=== PATIENT | female | born 1950 | race Caucasian/White ===

== ENCOUNTER → 2017-10-17 08:32 | Outpatient (CLI) | payer OTHER, MEDICARE, SELFPAY ==
[2017-10-17 09:21] LABS: AST(SGOT) 18 U/L (15-37); Alanine Aminotransfer ALT/SGPT 34 U/L (13-56); Albumin, Serum 3.6 g/dL (3.2-5.0); Alkaline Phosphatase 64 U/L (45-117); Bilirubin, Direct 0.12 mg/dL (0.00-0.30); Cholesterol 161 mg/dL (200); Globulin 4.2 g/dL (2.2-4.2); High Density Lipoprotein 49 mg/dL; Protein, Total 7.8 g/dL (6.4-8.2); Triglycerides 187 mg/dL; Very Low Density Lipoprotein 37 mg/dL (5-40)
== END ==
PROVIDERS: Family Provider Family Medicine; PCP Family Medicine; Visit Provider Internal Medicine Cardiovascular Disease
DX: E78.5 Hyperlipidemia, unspecified (principal); Z79.899 Other long term (current) drug therapy
CPT/HCPCS: 36415; 80061; 80076

== ENCOUNTER 2017-11-03 09:23 | Inpatient (IN) | payer OTHER, MEDICARE, SELFPAY ==
[2017-11-03] VITALS (17 sets, daily range): BP systolic 122–168; BP diastolic 61–89; PULSE 66–89; RESP 14–20; TEMP 36.4–36.6; O2SAT 93–100; BMI 30.7; BMI 33.3
--- NOTE | 2017-11-03 09:44 | EKG12_ITS ---
Test Reason : CP Blood Pressure : / mmHG Vent. Rate : 100 BPM Atrial Rate : 100 BPM P-R Int : 112 ms QRS Dur : 090 ms QT Int : 386 ms P-R-T Axes : 035 030 124 degrees QTc Int : 497 ms Normal sinus rhythm ST & T wave abnormality, consider lateral ischemia Abnormal ECG Confirmed by LIBBY NORRIS, REGINO ([id number]), fan mail editor HOLLY KINNEY ([id number]) on 11/06/2017 3:52:29 PM Referred By: OMER Confirmed By:REGINO SOUZA MD
--- NOTE | 2017-11-03 09:58 | ED.RN ---
DENIES CP 5MIN AFTER NITRO
--- NOTE | 2017-11-03 10:05 | EKG12_ITS ---
Test Reason : REPEAT Blood Pressure : / mmHG Vent. Rate : 073 BPM Atrial Rate : 073 BPM P-R Int : 132 ms QRS Dur : 096 ms QT Int : 412 ms P-R-T Axes : 042 016 098 degrees QTc Int : 453 ms Normal sinus rhythm Nonspecific ST and T wave abnormality Abnormal ECG Confirmed by LIBBY NORRIS, REGINO ([id number]), senior editor HOLLY KINNEY ([id number]) on 11/06/2017 3:52:41 PM Referred By: OMER Confirmed By:REGINO SOUZA MD
--- NOTE | 2017-11-03 10:05 | RAD_ITS ---
STUDY: X-RAY CHEST REASON FOR EXAM: Female, 67 years old. Sudden onset of chest pain this morning TECHNIQUE: Single view of the chest was obtained COMPARISON: None. FINDINGS: No lung consolidation, pleural effusion or pneumothorax. Midline sternotomy wires are seen. Cardiac size within normal limits. Osseous structures demonstrate no acute abnormalities. RAD/Chest 1 View (Portable) IMPRESSION: No evidence of focal airspace disease. Electronically Signed: Elgin Quinones, at 10:25 EST Tel , Service support ,
[2017-11-03] MEDS: Nitroglycerin Oint 1 INCH PACKET TRANSDERM. (10:13)
[2017-11-03] MEDS: Aspirin 81 MG TAB.CHEW 324 MG PO (10:13)
[2017-11-03 10:18] LABS: Absolute Lymphocyte Count 2.34 X10^3/ul (0.83-4.51); Absolute Neutrophil Count 4.2 X10^3/uL (2.0-7.7); Basophil# 0.03 X10^3/uL; Basophil% 0.4 % (0-1); Eosinophil# 0.33 X10^3/uL; Eosinophils% 4.5 % (0-5); Hemoglobin 13.3 g/dl (12.0-15.0); Lymphocyte # 2.34 X10^3/ul (4.0); Lymphocyte % 31.8 % (19-41); Mean Corp Hgb Conc 32.4 g/gl (32-36); Mean Corpuscular Volume 83.2 fL (81-99); Mean Platelet Vol. 12.6 fl (6.2-12.0); Monocyte# 0.47 X10^3/uL; Monocyte% 6.4 % (0-10); Neutrophil # 4.18 X10^3/uL (2.7-7.7); Neutrophil % 56.6 % (47-70); POSITIVE COUNT NO; POSITIVE DIFFERENTIAL NO; POSITIVE MORPHOLOGY NO; Platelet Count 258 K/mm3 (150-450); RBC Distribution Width CV 13.9 % (11.6-14.6); RBC Distribution Width SD 41.9 fl (35.1-43.9); Red Blood Count 4.93 M/mm3 (4.2-5.4); White Blood Count 7.4 K/mm3 (4.4-11.0)
[2017-11-03 10:39] LABS: Anion Gap 14 (5-15); BUN 17 mg/dL (7-18); BUN/Creat Ratio 14.2 RATIO (10-20); Calcium,Total 9.3 mg/dL (8.5-10.1); Chloride 103 mmol/L (98-107); EST Glomerular Filtration Rate 48 mL/min (>60); Est Glom Filt Rate - Afr Amer 58 mL/min (>60); Estimated Creatinine Clearance 39.82 ml/min; Glucose 177 mg/dL (74-106); Potassium 3.7 mmol/L (3.5-5.1); Sodium Level 140 mmol/L (136-145)
--- NOTE | 2017-11-03 10:55 | ED.VISSUMM ---
- ER Visit Summary Date of Service: 11/03/17 Chief Complaint: [Chest pain] History of Present Illness: The patient is a 67 F [presents to the emergency department with chest pain that started about 15 minutes ago. Patient was in the shower when she developed discomfort in her left chest that she described as pressure. Patient also describes some discomfort into her left arm and some mild shortness of breath. Patient's had some heartburn symptoms this morning as well. Patient on arrival states her chest pain is a 0 out of 10. Patient tells me she had a three-vessel CABG in 2007. Patient states that she thinks her last process was about a year ago and was unremarkable. Her senior design engineer is Dr. Tino Batista. Patient denies any recent travel or surgery.] Physical Examination: [HEENT-PERRLA, EOMI. Cranial nerves II through XII grossly intact. TMs clear. Mucous membranes moist. No adenopathy. Cardiovascular-regular rate and rhythm without murmur or ectopy Lungs-clear to auscultation, chest wall stable without crepitus or subcu emphysema Abdomen-normoactive bowel sounds, soft, nontender, no rebound or rigidity, no peritoneal signs. Extremities-intact ?4, normal range of motion, normal pulses, atraumatic] Test Results: [EKG obtained on arrival showed a sinus rhythm with a ventricular rate of [address] changes noted when compared with prior EKG from 2015 no significant changes noted. CBC with differential obtained was normal. Chemistries were normal. BUN was 17 and creatinine 1.2. Troponin was less than 0.02. Chest x-ray showed nothing acute.] Emergency Department Course and Treatment: [Patient initially received aspirin in the emergency department and during her stay she developed some discomfort in her left arm for which she received 1 sublingual nitro which resolved her pain once again. Repeat EKG does not show any significant changes compared to her first EKG here she does have chronically flipped T waves in leads I and aVL. Patient remained pain-free after she had an inch of Nitropaste placed to the anterior chest wall.] Treatment Plan: [Patient's case was discussed with hospitalist who will evaluate patient for admission] Disposition: [Admit] Impression: [Chest pain-rule out acute coronary syndrome] This note was generated with [employer] software. It may contain incorrect words, spelling, and punctuation that were not noted in review of the chart prior to signing ED Disposition - Plan for ED Patient: Chief Complaint: Chest Pain Referrals: Maikel Bay DO [Primary Care Provider] -
--- NOTE | 2017-11-03 10:59 | ED.DCSUM_ITS ---
- ER Visit Summary Date of Service: 11/03/17 Chief Complaint: [Chest pain] History of Present Illness: The patient is a 67 F [presents to the emergency department with chest pain that started about 15 minutes ago. Patient was in the shower when she developed discomfort in her left chest that she described as pressure. Patient also describes some discomfort into her left arm and some mild shortness of breath. Patient's had some heartburn symptoms this morning as well. Patient on arrival states her chest pain is a 0 out of 10. Patient tells me she had a three-vessel CABG in 2007. Patient states that she thinks her last process was about a year ago and was unremarkable. Her transmission rebuilder is Dr. Tino Batista. Patient denies any recent travel or surgery.] Physical Examination: [HEENT-PERRLA, EOMI. Cranial nerves II through XII grossly intact. TMs clear. Mucous membranes moist. No adenopathy. Cardiovascular-regular rate and rhythm without murmur or ectopy Lungs-clear to auscultation, chest wall stable without crepitus or subcu emphysema Abdomen-normoactive bowel sounds, soft, nontender, no rebound or rigidity, no peritoneal signs. Extremities-intact ?4, normal range of motion, normal pulses, atraumatic] Test Results: [EKG obtained on arrival showed a sinus rhythm with a ventricular rate of [address] changes noted when compared with prior EKG from 2015 no significant changes noted. CBC with differential obtained was normal. Chemistries were normal. BUN was 17 and creatinine 1.2. Troponin was less than 0.02. Chest x-ray showed nothing acute.] Emergency Department Course and Treatment: [Patient initially received aspirin in the emergency department and during her stay she developed some discomfort in her left arm for which she received 1 sublingual nitro which resolved her pain once again. Repeat EKG does not show any significant changes compared to her first EKG here she does have chronically flipped T waves in leads I and aVL. Patient remained pain-free after she had an inch of Nitropaste placed to the anterior chest wall.] Treatment Plan: [Patient's case was discussed with hospitalist who will evaluate patient for admission] Disposition: [Admit] Impression: [Chest pain-rule out acute coronary syndrome] This note was generated with [facility] software. It may contain incorrect words, spelling, and punctuation that were not noted in review of the chart prior to signing ED Disposition - Plan for ED Patient: Chief Complaint: Chest Pain Referrals: Maikel Bay DO [Primary Care Provider] -
--- NOTE | 2017-11-03 11:03 | HP.PCM_ITS ---
Problem List (1) Obesity Status: Chronic (2) Atherosclerotic heart disease of [place] coronary artery without angina pectoris Status: Chronic (3) Diabetes mellitus type II, controlled, with no complications Status: Chronic (4) Hyperlipidemia Status: Chronic (5) Hypertension Status: Chronic (6) S/P coronary artery bypass graft x 2 Status: Chronic Comment: 03/25/08, CAB X 3 vessels, CARNEY to LAD, SVG to DX & SVG to RCA, @ [facility] in [place], [place] (7) Unstable angina Status: Acute History of Present Illness Date of Admission: 11/03/17 Chief Complaint: chest pain The patient is a 67 year old F with a PMH of CAD with CABG X3 in 2007, diabetes mellitus type 2, hyperlipidemia, hypertension and obesity who presented to the emergency room on 11/03/2017 complaining of pressure. She was in the shower when she had palpitations followed by chest pressure with radiation down the left arm and associated with nausea, shortness of breath and diaphoresis. She did not have nitroglycerin at home. Her drove her to the emergency room and this took approximately 45 minutes from the onset of the pain. She received 1 nitroglycerin in the emergency room and the chest pain resolved in 4- 5 minutes. E[address] shows nons[address] and T-wave changes. Vital signs at arrival to the emergency temperature 97.7, pulse rate 89, blood pressure 168/88 , respiratory rate 15 and she was 100% saturated on room air. CBC was unremarkable. Electrolytes were within normal limits and the BUN was 17 with a creatinine of 1.2. 1.2 is within her baseline. Troponin was less than 0.02 in the LFTs were within normal limits. Hemoglobin A1c is 7.0. Test x-ray showed no infiltrates, pleural effusions or pulmonary vascular congestion. She had a pharmacologic stress test 1 year ago and this was negative. She has never had a cath since her CABG. She is being admitted to a monitored bed on PCU with a diagnosis of unstable angina. Past Medical History Past Medical History (Chronic Problems): Chronic Problems (Last Reviewed 10/18/17 @ 15:26 by Tino Batista MD) Obesity (Chronic) Atherosclerotic heart disease of [place] coronary artery without angina pectoris (Chronic) S/P coronary artery bypass graft x 2 (Chronic) 03/25/08, CAB X 3 vessels, CARNEY to LAD, SVG to DX & SVG to RCA, @ [facility] in [place], [place] Diabetes mellitus type II, controlled, with no complications (Chronic) Hyperlipidemia (Chronic) Hypertension (Chronic) Allergies iodine Allergy (Verified 11/03/17 09:36) Unknown shellfish derived Allergy (Verified 11/03/17 09:36) Unknown IV Contrast Adverse Reaction (Severe, Uncoded 11/03/17 09:36) Hives Home Medications: Ambulatory Orders Medication Instructions Recorded Epinephrine [Epi Pen] 0.3 mg IM X1 PRN 10/25/14 Fluticasone 0.05% [Flonase Nasal 2 spray NASAL DAILY PRN PRN 10/25/14 [place]] Losartan Potassium [Cozaar] 25 mg PO DAILY 10/25/14 Metformin HCl [Glucophage] 1,000 mg PO BIDCM 10/25/14 Metoprolol Tartrate [Lopressor 50 mg PO BID 10/25/14 (Beta Dawn)] Triamterene 75MG/Hctz 50MG 1 tab PO DAILY 10/25/14 [Maxzide] Aspirin [Adult Low Dose Aspirin EC] 81 mg PO DAILY 01/13/16 Multivitamins,Therapeutic 1 tab PO DAILY 01/13/16 [Multivitamin] Loratadine [Claritin] 10 mg PO DAILY PRN 05/10/16 sitagliptin 100 mg tablet 100 mg PO DAILY tab 10/16/17 oxybutynin chloride ER 5 mg 5 mg PO DAILY 10/18/17 tablet,extended release 24 hr simvastatin 40 mg tablet 40 mg PO QHS 10/18/17 Citalopram [Celexa] 20 mg PO DAILY 11/03/17 Esomeprazole Mag Trihydrate 22.3 mg PO QHS 11/03/17 [Nexium] Surgical History: cholecystectomy, coronary bypass surgery - 2007 with 3 vessel bypass, hysterectomy - for DUB Psychiatric History: 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 Denies: Claudication, Edema, Light Headedness, Orthopnea, Paroxysmal Noc. Dyspnea, Syncope Respiratory: Reports: Shortness of Breath - only with chest pain. Denies: Cough , Pleuritic Pain Gastrointestinal: Reports: Nausea. Denies: Abdominal Pain, Vomiting - the nausea resolved with the resolution of the chest pressure Genitourinary: Denies: Dysuria Gynecological: Denies: Breast symptoms, Vaginal discharge Musculoskeletal: Reports: Arm Pain - left arm pain and some back pain were associated with the chest pressure Skin: Denies: Jaundice, Rash, Wounds Neurological: Denies: Numbness, Tingling, Focal weakness Psychiatric: Reports: Depression Endocrine: Denies: Change in Body Habitus Hematologic/ Lymphatic: Denies: Hx of blood clot VTE Information - Inpt Only VTE Present on Admission: No VTE Mechan Device Prophylaxis: Knee High ELLIOT Hose VTE Pharm Prophylaxis ordered?: Yes Patient Problems: Active and Suspected Problems (Last Reviewed 10/18/17 @ 15:26 by Tino Batista MD ) Unstable angina (Acute) - Physical Exam General: Alert, Oriented x3, Cooperative, No apparent distress, Well developed, Well nourished HEENT: Atraumatic, PERRLA, EOMI, Normocephalic Oral: Moist Mucosa, No Gingival or Mucosal Lesions/ Ulcerations Neck: Supple, No JVD, Negative Carotid Bruits, No Nodes Lungs: Clear to auscultation, Normal air movement, No rhonchi, No wheeze, No rales Cardiovascular: Regular rate, Regular Rhythm, Normal S1, Normal S2, No murmurs, No Ectopic Activity, No Gallop Abdomen: Bowel Sounds Present, Soft, Non Tender, Non-Distended, Obese, - - No guarding with palpation, no abdominal bruits Extremities: No clubbing, No cyanosis, No edema, No Calf Tenderness, Peripheral Pulses Normal Skin: No rashes, No breakdown Musculoskeletal: No Muscle Wasting Neurological: Cranial nerves II-XII grossly intact, Neuro grossly intact Psych/Mental Status: Normal Affect, Appropriate Vital Signs Temp Pulse Resp BP Pulse Ox 97.7 F L 73 15 138/73 H 98 11/03/17 09:24 11/03/17 10:47 11/03/17 10:47 11/03/17 10:47 11/03/17 10:47 Oxygen Flow Rate 2 Oxygen Delivery Method Nasal Cannula Weight: 179 lb 0.246 oz Body Mass Index (BMI) 30.7 Laboratory Tests Past 24 Hrs 11/03/17 11/03/17 09:32 09:32 WBC 7.4 RBC 4.93 Hgb 13.3 Hct 41.0 MCV 83.2 MCH 27.0 MCHC 32.4 RDW 13.9 RDW Differential 41.9 Plt Count 258 MPV 12.6 H Immature Gran % (Auto) 0.300 Neut % (Auto) 56.6 Lymph % (Auto) 31.8 Sampson % (Auto) 6.4 Eos % (Auto) 4.5 Baso % (Auto) 0.4 Absolute Neuts (auto) 4.2 Absolute Lymphs (auto) 2.34 Total Counted Not Reportable Sodium 140 Potassium 3.7 Chloride 103 Carbon Dioxide 23.0 Anion Gap 14 BUN 17 Creatinine 1.20 H Estim Creat Clear Calc 39.82 Est GFR (MDRD) Af Amer 58 L Est GFR (MDRD) Non-Af 48 L BUN/Creatinine Ratio 14.2 Glucose 177 H Calcium 9.3 Troponin I < 0.02 Assessment/Plan Active and Suspected Problems (Last Reviewed 10/18/17 @ 15:26 by Tino Batista MD ) Unstable angina (Acute) Impressions 1. unstable angina 2. hx of CAD with CABG X3 in 2007 3. HTN 4. HLD 5. Obesity 6. Diabetes mellitus type 2 Admitted to PCU and the chest pain protocol was initiated started Isordil 10 mg TID Serial CE's (negative X2) Will discuss with cardiology and see if they think cath? or stress? Sx are classic for angina and she had bypass surgery 11 years ago Lipid panel in the AM DVT prophylax is ordered. Instructed to call the nurse if any chest discomfort Code Visit Inpatient E&M: 83841 Subs Hosp L3
--- NOTE | 2017-11-03 11:54 | ECHOD_ITS ---
Reason For Study: CHEST PAIN Procedure This was a 2D Doppler, Color Flow transthoracic echocardiogram. Contrast injection was performed. The study was technically difficult. Exam performed in department. Left Ventricle Normal LV size. Left ventricular systolic function is normal. The estimated ejection fraction is 55 %. Post operative septal motion. No evidence for diastolic dysfunction. No regional wall motion abnormalities noted. Right Ventricle Normal RV size. Normal systolic function. Atria Normal left atrium. Normal right atrium. Mitral Valve Normal mitral valve. Tricuspid Valve Normal tricuspid valve. Mild tricuspid valve insufficiency. Normal pulmonary artery pressure. Aortic Valve Trisinus/trileaflet aortic valve. Pulmonic Valve Normal pulmonic valve. Great Vessels Normal aortic root. The pulmonary artery is normal size. Inferior vena cava collapse with respiration. Pericardium/Pleural No pericardial effusion. Medication Diluted definity 2ml given slow IV push to enhance endocardial definition. MMode/2D Measurements & Calculations LVIDd: 4.3 cm IVSd: 1.1 cm Ao root diam: 2.7 cm LVIDs: 3.3 cm LVPWd: 0.85 cm LA dimension: 2.6 cm RVDd: 2.6 cm FS: 24.3 % LAV(MOD-bp): 23.6 ml EDV(MOD-sp4): 68.2 ml EDV(MOD-sp2): 50.6 ml LAV(MOD-bp) Indexed: 13.2 ml/m2 ESV(MOD-sp4): 31.0 ml EF(MOD-sp2): 58.2 % LAV(MOD-sp2): 17.2 ml EF(MOD-sp4): 54.6 % LAV(MOD-sp4): 24.4 ml SV(MOD-sp4): 37.2 ml SV(MOD-sp2): 29.4 ml LA A4 area: 11.6 cm2 RA A4 area: 7.9 cm2 Doppler Measurements & Calculations MV E max roscoe: 48.8 cm/sec Ao V2 max: 93.0 cm/sec LV V1 max: 78.8 cm/sec MV A max roscoe: 99.3 cm/sec Ao max P.5 mmHg LV V1 max P.5 mmHg MV E/A: 0.49 TR max roscoe: 215.5 cm/sec TR max P.6 mmHg Interpretation Summary Normal LV size. Left ventricular systolic function is normal. The estimated ejection fraction is 55 %. No evidence for diastolic dysfunction. Contrast injection was performed. Compared to prior study, there is no significant change. Ordering Physician: Jessica Pierre Referring Physician: GERMANIA JACOBSON Performed By: Prudence Shannon, HERMILOCS, RVT
--- NOTE | 2017-11-03 12:35 | EKG12_ITS ---
Test Reason : REPEAT Blood Pressure : / mmHG Vent. Rate : 066 BPM Atrial Rate : 066 BPM P-R Int : 130 ms QRS Dur : 094 ms QT Int : 448 ms P-R-T Axes : 030 010 085 degrees QTc Int : 469 ms Normal sinus rhythm Nonspecific ST abnormality Abnormal ECG When compared with ECG of 25-OCT-2014 20:03, Vent. rate has decreased BY 39 BPM Nonspecific T wave abnormality no longer evident in Inferior leads T wave inversion no longer evident in Lateral leads Confirmed by REGINO SOUZA MD ([id number]), health editor HOLLY KINNEY ([id number]) on 11/07/2017 1:46:01 PM Referred By: SEBAS Confirmed By:REGINO SOUZA MD
[2017-11-03 12:36] LABS: Bedside Glucose 96 mg/dL (70-110)
[2017-11-03 12:37] LABS: AST(SGOT) 29 U/L (15-37); Alanine Aminotransfer ALT/SGPT 36 U/L (13-56); Albumin, Serum 3.6 g/dL (3.2-5.0); Alkaline Phosphatase 67 U/L (45-117); Globulin 4.3 g/dL (2.2-4.2); Magnesium 1.6 mg/dL (1.6-2.6); Protein, Total 7.9 g/dL (6.4-8.2)
[2017-11-03] MEDS: Isosorbide DN 10 MG Tablet PO ×2 (14:09→21:14)
[2017-11-03 17:26] LABS: Bedside Glucose 133 mg/dL (70-110)
[2017-11-03] MEDS: Metoprolol Tartrate 50 MG Tablet PO (21:14)
[2017-11-03] MEDS: Atorvastatin Calcium 20 MG Tablet PO (21:14)
[2017-11-03 21:31] LABS: Bedside Glucose 147 mg/dL (70-110)
[2017-11-04] VITALS (14 sets, daily range): BP systolic 123–140; BP diastolic 61–72; PULSE 66–83; RESP 16–20; TEMP 36.7–37; O2SAT 93–96
[2017-11-04] MEDS: Isosorbide DN 10 MG Tablet PO ×3 (05:36→21:09)
--- NOTE | 2017-11-04 05:55 | EKG12_ITS ---
Test Reason : AM EKG Blood Pressure : / mmHG Vent. Rate : 071 BPM Atrial Rate : 071 BPM P-R Int : 132 ms QRS Dur : 094 ms QT Int : 432 ms P-R-T Axes : 035 012 095 degrees QTc Int : 469 ms Sinus rhythm with Premature atrial complexes ST & T wave abnormality, consider lateral ischemia Abnormal ECG When compared with ECG of 03-NOV-2017 12:35, MANUAL COMPARISON REQUIRED, DATA IS UNCONFIRMED Confirmed by LIBBY NORRIS, REGINO ([id number]), magazine editor HOLLY KINNEY ([id number]) on 11/07/2017 1:45:51 PM Referred By: ALESSANDRO Confirmed By:REGINO SOUZA MD
[2017-11-04 06:50] LABS: Bedside Glucose 152 mg/dL (70-110)
[2017-11-04 08:27] LABS: Cholesterol 144 mg/dL (200); High Density Lipoprotein 47 mg/dL; Triglycerides 138 mg/dL; Very Low Density Lipoprotein 28 mg/dL (5-40)
[2017-11-04] MEDS: Multivitamins,Therapeutic Tablet 1 TABLET PO (08:41)
[2017-11-04] MEDS: Aspirin E.C. 81 MG Tablet PO (08:41)
--- NOTE | 2017-11-04 08:50 | PCM.CONS.C ---
Reason for Consult Date of Consultation: 11/04/17 History of Present Illness: The patient is a 67 year old F with past medical history significant for coronary artery disease status post CABG in 2007, hypertension, dyslipidemia and diabetes mellitus. Cording to the patient, she was taking a shower yesterday when she started having palpitations. Shortly thereafter she started having anterior chest pressure that radiated into her left arm. She also felt short of breath with it and reportedly also had some diaphoresis. She was brought to the emergency room by her . According to her, her palpitations resolved shortly after presenting to the emergency room. The left arm pressure however persisted which was only relieved after she took a sublingual nitroglycerin. She has remained asymptomatic since. Patient denies any dizziness or lightheadedness associated with her episode. Denies any previous history of palpitations. No history of atrial fibrillation. No syncope or presyncope. She denies any angina pectoris prior to this episode ever since she has had her CABG [] Past Medical History Allergies/Adverse Reactions: Allergies iodine Allergy (Verified 11/03/17 09:36) Unknown shellfish derived Allergy (Verified 11/03/17 09:36) Unknown IV Contrast Adverse Reaction (Severe, Uncoded 11/03/17 09:36) Hives Home Medications: Ambulatory Orders Medication Instructions Recorded Epinephrine [Epi Pen] 0.3 mg IM X1 PRN 10/25/14 Fluticasone 0.05% [Flonase Nasal 2 spray NASAL DAILY PRN PRN 10/25/14 [place]] Losartan Potassium [Cozaar] 25 mg PO DAILY 10/25/14 Metformin HCl [Glucophage] 1,000 mg PO BIDCM 10/25/14 Metoprolol Tartrate [Lopressor 50 mg PO BID 10/25/14 (Beta Dawn)] Triamterene 75MG/Hctz 50MG 1 tab PO DAILY 10/25/14 [Maxzide] Aspirin [Adult Low Dose Aspirin EC] 81 mg PO DAILY 01/13/16 Multivitamins,Therapeutic 1 tab PO DAILY 01/13/16 [Multivitamin] Loratadine [Claritin] 10 mg PO DAILY PRN 05/10/16 sitagliptin 100 mg tablet 100 mg PO DAILY tab 10/16/17 oxybutynin chloride ER 5 mg 5 mg PO DAILY 10/18/17 tablet,extended release 24 hr simvastatin 40 mg tablet 40 mg PO QHS 10/18/17 Citalopram [Celexa] 20 mg PO DAILY 11/03/17 Esomeprazole Mag Trihydrate 22.3 mg PO QHS 11/03/17 [Nexium] Past Medical History (Chronic Problems): Chronic Problems (Last Reviewed 10/18/17 @ 15:26 by Tino Batista MD) Obesity (Chronic) Atherosclerotic heart disease of [place] coronary artery without angina pectoris (Chronic) S/P coronary artery bypass graft x 2 (Chronic) 03/25/08, CAB X 3 vessels, CARNEY to LAD, SVG to DX & SVG to RCA, @ [facility] in [place], [place] Diabetes mellitus type II, controlled, with no complications (Chronic) Hyperlipidemia (Chronic) Hypertension (Chronic) Surgical History: cholecystectomy, coronary bypass surgery - 2007 with 3 vessel bypass, hysterectomy - for DUB 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: dysfunctional 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 bld - *Family History Maternal Family History: Family History (Last Reviewed 10/18/17 @ 15:26 by Tino Batista MD) Father CAD (coronary artery disease) Mother CAD (coronary artery disease) History Items: Heart Disease Paternal Family History: Family History (Last Reviewed 10/18/17 @ 15:26 by Tino Batista MD) Father CAD (coronary artery disease) Mother CAD (coronary artery disease) History Items: Heart Disease Sibling Family History: Family History (Last Reviewed 10/18/17 @ 15:26 by Tino Batista MD) Father CAD (coronary artery disease) Mother CAD (coronary artery disease) History Items: Heart Disease Lives: Spouse/ Significant Other Smoking Status: Former smoker - quit in 1974 Tobacco Use: Non-smoker Alcohol: Rare Drugs: None Review of Systems - Review of Systems General: Denies: Fever, Malaise, Chills HEENT: Denies: Vision Change Cardiovascular: Reports: Chest Discomfort at Rest, Chest Tightness, Shortness of Breath at Rest, Palpitations. Denies: Orthopnea, PND, Lightheadedness, Dizziness, Near Syncope, Syncope Respiratory: Denies: Hemoptysis Gastrointestinal: Reports: Heart Burn - Per patient, she has been having heartburn for the past some time, Abdominal Discomfort Neurological: Denies: History of TIA, History of CVA Hematologic/ Lymphatic: Denies: Easy Brusing, Easy Bleeding Objective: Vital Signs Temp Pulse Resp BP Pulse Ox 98.3 F 81 16 140/72 H 93 11/04/17 05:33 11/04/17 06:53 11/04/17 05:33 11/04/17 05:33 11/04/17 07:33 Oxygen Delivery Method Room Air Intake and Output for Last 24 Hours 11/02/17 11/03/17 11/04/17 23:59 23:59 23:59 Intake Total 840 / 840 100 / 100 Balance 840 / 840 100 / 100 General: Healthy Appearing, Awake, Alert, Oriented x 3, No Acute Distress HEENT: Atraumatic Oral: Moist Mucosa Neck: Supple, No JVD Lungs: Clear to auscultation Cardiovascular: Regular Rhythm, Normal S1, Normal S2 Vascular: No Carotid Bruits Abdomen: Bowel Sounds Present, Soft, Non Tender Extremities: No edema Neurological: No Focal Motor or Sensory Deficit Psych/Mental Status: Appropriate 11/03/17 18:00: Troponin I < 0.02 11/03/17 23:35: Troponin I < 0.02 11/04/17 05:22: Triglycerides 138, Cholesterol 144, LDL Cholesterol 69, VLDL Cholesterol 28, HDL Cholesterol 47 Rhythm: Normal sinus rhythm EKG: Normal sinus rhythm. High lateral ST T changes that are present on EKG from 2015 as well Assessment/Plan 1. Chest and arm pain, suspect unstable angina pectoris. Her symptoms however started with palpitations. If she had a tachyarrhythmia, this could cause angina pectoris with underlying CAD. Her troponin have been negative. Will check an exercise stress Cardiolite to evaluate for extent of ischemia. Agree with Isordil. Also start on Plavix. Check 2D echocardiogram 2. Hypertension 3. Diabetes mellitus 4. Dyslipidemia
[2017-11-04] MEDS: Clopidogrel Bisulfate 75 MG Tablet PO (09:32)
[2017-11-04] MEDS: Metoprolol Tartrate 100 MG Tablet PO ×2 (09:33→21:11)
[2017-11-04] MEDS: Citalopram 20 MG Tablet PO (09:34)
[2017-11-04] MEDS: Triamterene 75MG/Hctz 50MG Tablet 1 TABLET PO (09:34)
[2017-11-04] MEDS: LINAGLIPTIN 5 MG TABLET PO (09:34)
[2017-11-04] MEDS: Tolterodine Tartrate 2 MG CAP.SA PO (09:34)
[2017-11-04] MEDS: Enoxaparin 40 MG/0.4 ML Syringe SC (09:34)
[2017-11-04] MEDS: Loratadine 10 MG Tablet PO (09:34)
[2017-11-04] MEDS: Losartan Potassium 25 MG Tablet PO (09:34)
[2017-11-04 11:41] LABS: Bedside Glucose 168 mg/dL (70-110)
[2017-11-04 16:56] LABS: Bedside Glucose 135 mg/dL (70-110)
--- NOTE | 2017-11-04 20:55 | PN_ITS ---
Patient Problems: Active and Suspected Problems (Last Reviewed 10/18/17 @ 15:26 by Tino Batista MD ) Unstable angina (Acute) Subjective: The patient is a 67 year old F with a PMH of CAD with CABG X3 in 2007, diabetes mellitus type 2, hyperlipidemia, hypertension and obesity who presented to the emergency room on 11/03/2017 complaining of chest pressure. This was associated with diaphoresis, SOB, radiation into the left arm and nausea. The chest pressure was preceded by a racing heart. Serial CE's have been negative. She has had no CP since admission to the hospital and there has been no significant dysrhythmia. Seen by Dr. Alvarez and he has ordered Plavix and a stress test for the AM. She normally follows with Dr. Batista. Vital signs are stable and the blood pressure is well controlled. Pulse ox on room air is 94%. - Physical Exam General: Alert, Oriented x3, No apparent distress Lungs: Clear to auscultation, Normal air movement, No rhonchi, No wheeze, No rales Cardiovascular: Regular rate, Regular Rhythm, Normal S1, Normal S2, No murmurs, No rub noted, No Gallop Abdomen: Bowel Sounds Present, Soft, Non Tender, Non-Distended Extremities: No edema, No Calf Tenderness Neurological: Cranial nerves II-XII grossly intact, Neuro grossly intact Psych/Mental Status: Normal Affect, Appropriate Vital Signs Temp Pulse Resp BP Pulse Ox 98.6 F 76 16 123/61 H 94 11/04/17 15:30 11/04/17 18:46 11/04/17 15:30 11/04/17 15:30 11/04/17 15:30 Oxygen Delivery Method Room Air Weight: 176 lb 2.389 oz Intake and Output for Last 24 Hours 11/02/17 11/03/17 11/04/17 23:59 23:59 23:59 Intake Total 840 / 840 580 / 580 Balance 840 / 840 580 / 580 Laboratory Tests Past 24 Hrs 11/03/17 11/04/17 23:35 05:22 Troponin I < 0.02 Triglycerides 138 Cholesterol 144 LDL Cholesterol 69 VLDL Cholesterol 28 HDL Cholesterol 47 POC Glucose 11/04/17 11/04/17 11/04/17 16:40 11:37 06:46 POC Glucose 135 H 168 H 152 H 11/03/17 21:13 POC Glucose 147 H Assessment/Plan Active and Suspected Problems (Last Reviewed 10/18/17 @ 15:26 by Tino Batista MD ) Unstable angina (Acute) Impressions 1. unstable angina - possibly precipitated by a tachydysrhythmia 2. hx of CAD with CABG X3 in 2007 3. HTN 4. HLD 5. Obesity 6. Diabetes mellitus type 2 Plan nuclear stress in the AM....I encouraged her to try an walk on the treadmill I have encouraged her to start a walking program at home and work up to 30 minutes 5-6 times a week Plavix has been started by Dr. Alvarez Code Visit Inpatient E&M: 92107 Subs Hosp L2
[2017-11-04] MEDS: Atorvastatin Calcium 20 MG Tablet PO (21:09)
[2017-11-04 22:06] LABS: Bedside Glucose 186 mg/dL (70-110)
[2017-11-05] VITALS (8 sets, daily range): BP systolic 117–134; BP diastolic 59–78; PULSE 70–90; RESP 12–17; TEMP 36.6–36.8; O2SAT 95–99
--- NOTE | 2017-11-05 05:55 | EKG12_ITS ---
Test Reason : AM EKG Blood Pressure : / mmHG Vent. Rate : 074 BPM Atrial Rate : 074 BPM P-R Int : 140 ms QRS Dur : 094 ms QT Int : 432 ms P-R-T Axes : 050 025 097 degrees QTc Int : 479 ms Normal sinus rhythm Normal ECG When compared with ECG of 04-NOV-2017 04:13, MANUAL COMPARISON REQUIRED, DATA IS UNCONFIRMED Confirmed by LIBBY NORRIS, REGINO ([id number]), state editor HOLLY KINNEY ([id number]) on 11/07/2017 1:43:57 PM Referred By: SEBAS Confirmed By:REGINO SOUZA MD
[2017-11-05] MEDS: Aspirin E.C. 81 MG Tablet PO (06:13)
[2017-11-05] MEDS: Isosorbide DN 10 MG Tablet PO (06:13)
[2017-11-05] MEDS: Clopidogrel Bisulfate 75 MG Tablet PO (06:14)
[2017-11-05] MEDS: Losartan Potassium 25 MG Tablet PO (06:14)
[2017-11-05] MEDS: Metoprolol Tartrate 100 MG Tablet PO (06:14)
[2017-11-05 06:21] LABS: Bedside Glucose 157 mg/dL (70-110)
[2017-11-05 06:28] LABS: Anion Gap 10 (5-15); BUN 19 mg/dL (7-18); BUN/Creat Ratio 17.4 RATIO (10-20); Calcium,Total 9.3 mg/dL (8.5-10.1); Chloride 101 mmol/L (98-107); Creatinine, Serum 1.09 mg/dL (0.55-1.02); EST Glomerular Filtration Rate 53 mL/min (>60); Est Glom Filt Rate - Afr Amer 65 mL/min (>60); Estimated Creatinine Clearance 38.31 ml/min; Glucose 143 mg/dL (74-106); Potassium 3.5 mmol/L (3.5-5.1); Sodium Level 140 mmol/L (136-145)
[2017-11-05 06:32] LABS: Absolute Lymphocyte Count 2.08 X10^3/ul (0.83-4.51); Absolute Neutrophil Count 3.5 X10^3/uL (2.0-7.7); Basophil# 0.02 X10^3/uL; Basophil% 0.3 % (0-1); Eosinophil# 0.27 X10^3/uL; Eosinophils% 4.2 % (0-5); Hematocrit 41.4 % (37-47); Hemoglobin 13.4 g/dl (12.0-15.0); International Normalized Ratio 0.9; Lymphocyte # 2.08 X10^3/ul (4.0); Lymphocyte % 32.2 % (19-41); Mean Corp Hgb Conc 32.4 g/gl (32-36); Mean Corpuscular Hgb 27.1 pg (27.0-32.0); Mean Corpuscular Volume 83.8 fL (81-99); Mean Platelet Vol. 12.2 fl (6.2-12.0); Monocyte# 0.54 X10^3/uL; Monocyte% 8.4 % (0-10); Neutrophil # 3.54 X10^3/uL (2.7-7.7); Neutrophil % 54.7 % (47-70); Platelet Count 210 K/mm3 (150-450); Prothrombin Time (Protime)PT. 11.7 SECONDS (11.7-14.9); RBC Distribution Width CV 13.8 % (11.6-14.6); RBC Distribution Width SD 41.9 fl (35.1-43.9); Red Blood Count 4.94 M/mm3 (4.2-5.4); White Blood Count 6.5 K/mm3 (4.4-11.0)
[2017-11-05 06:33] LABS: Partial Thromboplast Time 27.3 Seconds (24.1-36.2)
[2017-11-05 06:45] LABS: POSITIVE COUNT NO; POSITIVE DIFFERENTIAL NO; POSITIVE MORPHOLOGY NO
--- NOTE | 2017-11-05 07:30 | PN.CARD_ITS ---
Subjectve: Patient was seen and evaluated. She is well known to me from previous encounters in the office. She has been pain-free since admission. Objective: Vital Signs Temp Pulse Resp BP Pulse Ox 98.0 F 77 12 134/78 H 96 11/05/17 06:06 11/05/17 06:14 11/05/17 06:06 11/05/17 06:06 11/05/17 06:06 Oxygen Delivery Method Room Air Weight: 176 lb 2.389 oz Intake and Output for Last 24 Hours 11/03/17 11/04/17 11/05/17 23:59 23:59 23:59 Intake Total 840 / 840 1160 / 1160 Balance 840 / 840 1160 / 1160 General: Awake, Alert, Oriented x 3 HEENT: PERRL, EOMI, Sclera Non Icteric Neck: Supple, Good ROM, No Lymph Node Enlargement Lungs: Clear to auscultation Cardiovascular: Regular Rhythm, Normal S1, Normal S2, No Murmurs, No Rubs, No Gallops Vascular: No Carotid Bruits, Normal Femoral Pulses, Normal Radial Pulses, Normal Dorsalis Pedal Pulse, Normal Posterior Tibial Pulses Abdomen: Bowel Sounds Present, Soft, Non Tender, No HSM, No Organomegaly Extremities: No Cyanosis, No Clubbing, No edema Neurological: No Focal Motor or Sensory Deficit 11/04/17 05:22: Triglycerides 138, Cholesterol 144, LDL Cholesterol 69, VLDL Cholesterol 28, HDL Cholesterol 47 11/05/17 05:05: WBC 6.5, RBC 4.94, Hgb 13.4, Hct 41.4, MCV 83.8, MCH 27.1, MCHC 32.4, RDW 13.8, RDW Differential 41.9, Plt Count 210, MPV 12.2 H, Immature Gran % (Auto) 0.200, Neut % (Auto) 54.7, Lymph % (Auto) 32.2, [place] % (Auto) 8.4, Eos % (Auto) 4.2, Baso % (Auto) 0.3, Absolute Neuts (auto) 3.5, Total Counted Not Reportable 11/05/17 05:05: PT 11.7, INR 0.9, APTT 27.3 11/05/17 05:05: Sodium 140, Potassium 3.5, Chloride 101, Carbon Dioxide 29.0, Anion Gap 10, BUN 19 H, Creatinine 1.09 H, Est GFR (MDRD) Af Amer 65, Est GFR ( MDRD) Non-Af 53 L, BUN/Creatinine Ratio 17.4, Glucose 143 H, Calcium 9.3 Rhythm: EKG: Sinus rhythm with no acute changes. Assessment/Plan 1. Chest pain-patient with known coronary artery disease status post carotid bypass surgery. Status post coronary bypass surgery. She presents with atypical chest pain at this time and my recommendation would be for her to undergo exercise stress test with nuclear imaging. If the above is normal then I would suggest continued medical therapy. Check enzymes were normal which was reassuring and her EKG did not demonstrate any changes. 2. Hypertension Blood pressure appears to be under good control on the current medical regimen and I would not suggest that we make any changes. 3. Hyperlipidemia His recent lipid profile during this admission is excellent and no changes will be made. Thank you for allowing me to participate in the care of your patient. Please don't hesitate to call if any issues arise
[2017-11-05] MEDS: Multivitamins,Therapeutic Tablet 1 TABLET PO (09:36)
[2017-11-05] MEDS: Loratadine 10 MG Tablet PO (09:36)
[2017-11-05] MEDS: Citalopram 20 MG Tablet PO (09:36)
[2017-11-05] MEDS: Triamterene 75MG/Hctz 50MG Tablet 1 TABLET PO (09:36)
[2017-11-05] MEDS: LINAGLIPTIN 5 MG TABLET PO (09:37)
[2017-11-05] MEDS: Tolterodine Tartrate 2 MG CAP.SA PO (09:37)
--- NOTE | 2017-11-05 11:18 | PCM.PN.HOSP ---
Subjective: Patient was seen and examined. No new complaints. Had stress test done, waiting on results. No acute events on telemetry Vitals/I&O's: Vital Signs Temp Pulse Resp BP Pulse Ox 97.8 F 74 12 117/59 L 95 11/05/17 09:33 11/05/17 09:33 11/05/17 09:33 11/05/17 09:33 11/05/17 09:33 Oxygen Delivery Method Room Air Weight: 79.9 kg Intake and Output for Last 24 Hours 11/03/17 11/04/17 11/05/17 23:59 23:59 23:59 Intake Total 840 / 840 1160 / 1160 Balance 840 / 840 1160 / 1160 General: Alert, Oriented x3, Cooperative, No apparent distress HEENT: Atraumatic, PERRLA, EOMI, Normocephalic Oral: Moist Mucosa Neck: Supple, Negative Carotid Bruits Lungs: Clear to auscultation, Normal air movement Cardiovascular: Regular rate, Regular Rhythm, Normal S1, Normal S2, No murmurs Abdomen: Bowel Sounds Present, Soft, Non Tender, Non-Distended, No Hepato-splenomegaly Extremities: No edema Skin: No rashes, No breakdown Musculoskeletal: No Tenderness to Palpation of Joints or Extremities Lymphatic: No Cervical, Supraclavicular, or Inguinal Adenopathy Neurological: Cranial nerves II-XII grossly intact, Neuro grossly intact Psych/Mental Status: Normal Affect, Appropriate Laboratory Results 11/04/17 11:37: POC Glucose 168 H 11/04/17 16:40: POC Glucose 135 H 11/04/17 21:08: POC Glucose 186 H 11/05/17 05:05: WBC 6.5, RBC 4.94, Hgb 13.4, Hct 41.4, MCV 83.8, MCH 27.1, MCHC 32.4, RDW 13.8, RDW Differential 41.9, Plt Count 210, MPV 12.2 H, Immature Gran % (Auto) 0.200, Neut % (Auto) 54.7, Lymph % (Auto) 32.2, [place] % (Auto) 8.4, Eos % (Auto) 4.2, Baso % (Auto) 0.3, Absolute Neuts (auto) 3.5, Absolute Lymphs (auto) 2.08, Total Counted Not Reportable 11/05/17 05:05: PT 11.7, INR 0.9, APTT 27.3 11/05/17 05:05: Sodium 140, Potassium 3.5, Chloride 101, Carbon Dioxide 29.0, Anion Gap 10, BUN 19 H, Creatinine 1.09 H, Estim Creat Clear Calc 38.31, Est GFR (MDRD) Af Amer 65, Est GFR (MDRD) Non-Af 53 L, BUN/Creatinine Ratio 17.4, Glucose 143 H, Calcium 9.3 11/05/17 06:11: POC Glucose 157 H Current Medications Aspirin (Ecotrin) 81 mg PO DAILY@0800 [facility] Last Admin: 11/05/17 06:13 Dose: 81 mg Atorvastatin Calcium (Lipitor) 20 mg PO QPM [facility] Last Admin: 11/04/17 21:09 Dose: 20 mg Citalopram Hydrobromide (Celexa) 20 mg PO DAILY [facility] Last Admin: 11/05/17 09:36 Dose: 20 mg Clopidogrel Bisulfate (Plavix) 75 mg PO DAILY [facility] Last Admin: 11/05/17 06:14 Dose: 75 mg Enoxaparin Sodium (Lovenox) 40 mg SC DAILY@1000 [facility] Last Admin: 11/05/17 09:36 Dose: Not Given Isosorbide Dinitrate (Isordil) 10 mg PO TID [facility] Last Admin: 11/05/17 06:13 Dose: 10 mg Linagliptin (Tradjenta) 5 mg PO DAILY [facility] Last Admin: 11/05/17 09:37 Dose: 5 mg Loratadine (Claritin) 10 mg PO DAILY [facility] Last Admin: 11/05/17 09:36 Dose: 10 mg Losartan Potassium (Cozaar) 25 mg PO DAILY [facility] Last Admin: 11/05/17 06:14 Dose: 25 mg Magnesium Hydroxide (Milk Of Magnesia) 30 ml PO DAILY PRN PRN Reason: Constipation Metoprolol Tartrate (Lopressor (Beta Dawn)) 100 mg PO BID [facility] Last Admin: 11/05/17 06:14 Dose: 100 mg Multivitamins (Multivitamin) 1 tablet PO DAILYCM [facility] Last Admin: 11/05/17 09:36 Dose: 1 tablet Nitroglycerin (Nitrostat) 0.4 mg SUBLINGUAL Q5M PRN PRN Reason: CHEST PAIN Tolterodine Tartrate (Detrol La) 2 mg PO DAILY [facility] Last Admin: 11/05/17 09:37 Dose: 2 mg Triamterene/HCTZ (Maxzide) 1 tablet PO DAILY [facility] Last Admin: 11/05/17 09:36 Dose: 1 tablet Assessment/Plan 67 year old F with a PMH of CAD s/p CABG, Diabetes mellitus type 2, hyperlipidemia, hypertension and obesity admitted on 11/03/2017 with chest pain associated with diaphoresis and shortness of breath with radiation to left arm. Troponins have been negative. 1. Chest pain, concerning for unstable angina, started on plavix, continued on aspirin, statin, suicidal by dinitrate, losartan, metoprolol. Stress test done was negative. Follow-up with cardiology in the outpatient 2. CAD s/p CABG, continue Plavix, aspirin, statin, beta-dawn, isosorbide 3. Hypertension, controlled 4. Hyperlipidemia, on statins 5. Diabetes mellitus type 2, on Tradjenta and Metformin 6. Obesity, weight loss and exercise is advised
--- NOTE | 2017-11-05 11:37 | CASEMGMT ---
Face to Face with patient for initial transition planning/care coordination assessment. MULU ANGLIN introduced self and role at [facility], pt voices understanding and consents to assessment at this time. Pt is sitting up in bed in no distress at this time. Pt A/O x4 at this time and answers all questions appropriately at this time. Care providers, pharmacy, and demographics verified. See attached link. Pt voices no further concerns/needs at this time. Advised pt to ask for CM if any further questions/concerns/needs arise, voices understanding. PLAN: [place] MULU ANGLIN
--- NOTE | 2017-11-05 11:58 | STRESSREP ---
Stress Test Report Exercise myocardial perfusion stress test 67-year-old lady with a history of chest pain. Stress protocol: Resting EKG demonstrates normal sinus rhythm with rate of [address]-T wave changes noted. The patient exercised according to the regular Bernabe protocol for a total duration of 4 minutes and 56 seconds completing almost 2 minutes in stage II of the Bernabe protocol. The patient maintained sinus rhythm throughout the recording. At rest there were nonspecific ST-T wave changes noted we did not denote ischemia at peak exercise upsloping ST changes were noted we did not do note ischemia. No clinical angina was noted. Resting heart rate was 83 bpm with a peak heart rate of 169 bpm which was 109% of the maximum predicted heart rate the maximum workload was 6.9 metabolic equivalents. At rest there were no ST or T-wave changes noted suggest ischemia at peak exercise no ST or T-wave changes were noted suggest ischemia. The test was terminated due to generalized fatigue. The resting blood pressure was 120/70 with a peak blood pressure 142/80 mmHg. Myocardial perfusion protocol. 11.9 mCi of technetium 99m sestamibi was injected at rest. The patient exercised according to the regular Bernabe protocol for almost 5 minutes attaining a workload of 6.9 metabolic equivalents. At peak exercise 34.1 mCi of technetium 99m sestamibi was injected. Stress images were obtained. Stress and rest images were reconstructed and compared in the short axis vertical long and horizontal long axis. Gated images were also obtained. Perfusion SPECT analysis: Review of the stress images demonstrate normal uptake of tracer noted in all areas of the myocardium. The resting images similarly demonstrated normal uptake of tracer noted in all areas of the myocardium. No areas of reversibility are noted suggest ischemia no previous infarct is noted. Gated SPECT analysis: The gated ejection fraction is 67%. Conclusion: Normal exercise myocardial perfusion stress test at a moderate workload. No clinical angina noted. Preserved ejection fraction.
--- NOTE | 2017-11-05 12:21 | PCM.DC ---
- Discharge Diagnoses Current Active Problems: Current Active and Chronic Problems (Last Reviewed 10/18/17 @ 15:26 by Tino Batista MD) Obesity (Chronic) Unstable angina (Acute) Reason(s) for Visit for Discharge Instructions: chest pain You will use the following diet at home:: Calorie/Carbohydrate Controlled (specify 1200, 1400, etc), Cardiac Your food should be the consistency of: Regular Your liquids should be the consistency of: Regular/Thin Discharge Activity: Return to Normal Activity Allergies/Adverse Reactions: Allergies iodine Allergy (Verified 11/03/17 09:36) Unknown shellfish derived Allergy (Verified 11/03/17 09:36) Unknown IV Contrast Adverse Reaction (Severe, Uncoded 11/03/17 09:36) Hives Medications to take at Discharge Epinephrine [Epi Pen] 0.3 mg IM X1 PRN 10/25/14 Fluticasone 0.05% [Flonase Nasal [place]] 2 spray NASAL DAILY PRN PRN 10/25/14 Losartan Potassium [Cozaar] 25 mg PO DAILY 10/25/14 Metformin HCl [Glucophage] 1,000 mg PO BIDCM 10/25/14 Triamterene 75MG/Hctz 50MG [Maxzide] 1 tab PO DAILY 10/25/14 Aspirin [Adult Low Dose Aspirin EC] 81 mg PO DAILY 01/13/16 Multivitamins,Therapeutic [Multivitamin] 1 tab PO DAILY 01/13/16 Loratadine [Claritin] 10 mg PO DAILY PRN 05/10/16 sitagliptin 100 mg tablet 100 mg PO DAILY tab 10/16/17 oxybutynin chloride ER 5 mg tablet,extended release 24 hr 5 mg PO DAILY 10/18/17 simvastatin 40 mg tablet 40 mg PO QHS 10/18/17 Citalopram [Celexa] 20 mg PO DAILY 11/03/17 Esomeprazole Mag Trihydrate [Nexium] 22.3 mg PO QHS 11/03/17 Clopidogrel Bisulfate [Plavix] 75 mg PO DAILY #30 tab 11/05/17 Isosorbide DN [Isordil] 10 mg PO TID #90 tab 11/05/17 Metoprolol Tartrate [Lopressor (beta ian)] 100 mg PO BID #60 tab 11/05/17 Nitroglycerin [Nitrostat] 0.4 mg SUBLINGUAL Q5M PRN #5 tab 11/05/17 The following prescriptions were given: Clopidogrel Bisulfate [Plavix] 75 mg PO DAILY #30 tab Nitroglycerin [Nitrostat] 0.4 mg SUBLINGUAL Q5M PRN #5 tab PRN Reason: Chest Pain Metoprolol Tartrate [Lopressor (beta ian)] 100 mg PO BID #60 tab Isosorbide DN [Isordil] 10 mg PO TID #90 tab Orders to be completed after discharge: Basic Metabolic Profile (BMP) Time Frame: 1 Week, Location: Laboratory Primary Care Physician: Maikel Bay DO [Primary Care Provider] - Please follow up with your Primary Care Physician in: within 2 weeks Please Follow Up With: Tino Batista MD When: within 2 weeks Proposed Discharge Date: 11/05/17
--- NOTE | 2017-11-05 12:27 | DS.PCM_ITS ---
Discharge Date and Diagnosis Date of Admission: 11/03/17 Date of Discharge: 11/05/17 - Primary Discharge Diagnosis Active and Suspected Problems (Last Reviewed 10/18/17 @ 15:26 by Tino Batista MD ) Unstable angina (Acute) Chest pain - Secondary Discharge Diagnosis Chronic Problems (Last Reviewed 10/18/17 @ 15:26 by Tino Batista MD) Obesity (Chronic) Atherosclerotic heart disease of [place] coronary artery without angina pectoris (Chronic) S/P coronary artery bypass graft x 2 (Chronic) 03/25/08, CAB X 3 vessels, CARNEY to LAD, SVG to DX & SVG to RCA, @ [facility] in [place], [place] Diabetes mellitus type II, controlled, with no complications (Chronic) Hyperlipidemia (Chronic) Hypertension (Chronic) Hospital Course and Treatment Imaging Results: 11/05/17 05:55 Nuclear Stress Test - Treadmil [NM] AM (NON MEDS) Cardiology Operations: None Procedures: 2-D Echocardiogram Summary of Care Provided: 67 year old F with a PMH of CAD s/p CABG, Diabetes mellitus type 2, hyperlipidemia, hypertension and obesity admitted on 11/03/2017 with chest pain associated with diaphoresis and shortness of breath with radiation to left arm. This started when she took a shower the day before admission, and started having palpitations. Soon after the palpitations started she started having anterior chest pressure that radiated to the left arm. 1. Chest pain, concerning for unstable angina, started on plavix, continued on aspirin, statin, suicidal by dinitrate, losartan, metoprolol. Troponins were negative. Stress test done was negative. Follow-up with cardiology in the outpatient 2. CAD s/p CABG, continue Plavix, aspirin, statin, beta-ian, isosorbide 3. Hypertension, controlled 4. Hyperlipidemia, on statins 5. Diabetes mellitus type 2, on Tradjenta and Metformin 6. Obesity, weight loss and exercise is advised Discharge Diet: Low fat/ Low Cholesterol, 2000 mg Sodium Diet, Carb Control Diet Discharge Activity: Return to Normal Activity Home Medications: Medications to take at Discharge Epinephrine [Epi Pen] 0.3 mg IM X1 PRN 10/25/14 Fluticasone 0.05% [Flonase Nasal [place]] 2 spray NASAL DAILY PRN PRN 10/25/14 Losartan Potassium [Cozaar] 25 mg PO DAILY 10/25/14 Metformin HCl [Glucophage] 1,000 mg PO BIDCM 10/25/14 Triamterene 75MG/Hctz 50MG [Maxzide] 1 tab PO DAILY 10/25/14 Aspirin [Adult Low Dose Aspirin EC] 81 mg PO DAILY 01/13/16 Multivitamins,Therapeutic [Multivitamin] 1 tab PO DAILY 01/13/16 Loratadine [Claritin] 10 mg PO DAILY PRN 05/10/16 sitagliptin 100 mg tablet 100 mg PO DAILY tab 10/16/17 oxybutynin chloride ER 5 mg tablet,extended release 24 hr 5 mg PO DAILY simvastatin 40 mg tablet 40 mg PO QHS 10/18/17 Citalopram [Celexa] 20 mg PO DAILY 11/03/17 Esomeprazole Mag Trihydrate [Nexium] 22.3 mg PO QHS 11/03/17 Clopidogrel Bisulfate [Plavix] 75 mg PO DAILY #30 tab 11/05/17 Isosorbide DN [Isordil] 10 mg PO TID #90 tab 11/05/17 Metoprolol Tartrate [Lopressor (beta ian)] 100 mg PO BID #60 tab 11/05/17 Nitroglycerin [Nitrostat] 0.4 mg SUBLINGUAL Q5M PRN #5 tab 11/05/17 Following Prescrptions Were Given to Patient: Clopidogrel Bisulfate [Plavix] 75 mg PO DAILY #30 tab Nitroglycerin [Nitrostat] 0.4 mg SUBLINGUAL Q5M PRN #5 tab PRN Reason: Chest Pain Metoprolol Tartrate [Lopressor (beta ian)] 100 mg PO BID #60 tab Isosorbide DN [Isordil] 10 mg PO TID #90 tab Primary Care Physician: Maikel Bay DO [Primary Care Provider] - Please follow up with your Primary Care Physician in: within 2 weeks Please Follow Up With: Tino Batista MD When: within 2 weeks Disposition: Home Minutes spent on discharge:: 25 Patient Condition:: Stable Meaningful Use Info Meaningful Use Diagnoses (Choose all that apply): None applicable Code Visit Inpatient E&M: 89514 Disch Hosp
--- NOTE | 2017-11-05 12:27 | DCINST_ITS ---
- Discharge Diagnoses Current Active Problems: Current Active and Chronic Problems (Last Reviewed 10/18/17 @ 15:26 by Tino Batista MD) Obesity (Chronic) Unstable angina (Acute) Reason(s) for Visit for Discharge Instructions: chest pain You will use the following diet at home:: Calorie/Carbohydrate Controlled ( specify 1200, 1400, etc), Cardiac Your food should be the consistency of: Regular Your liquids should be the consistency of: Regular/Thin Discharge Activity: Return to Normal Activity Allergies/Adverse Reactions: Allergies iodine Allergy (Verified 11/03/17 09:36) Unknown shellfish derived Allergy (Verified 11/03/17 09:36) Unknown IV Contrast Adverse Reaction (Severe, Uncoded 11/03/17 09:36) Hives Medications to take at Discharge Epinephrine [Epi Pen] 0.3 mg IM X1 PRN 10/25/14 Fluticasone 0.05% [Flonase Nasal [place]] 2 spray NASAL DAILY PRN PRN 10/25/14 Losartan Potassium [Cozaar] 25 mg PO DAILY 10/25/14 Metformin HCl [Glucophage] 1,000 mg PO BIDCM 10/25/14 Triamterene 75MG/Hctz 50MG [Maxzide] 1 tab PO DAILY 10/25/14 Aspirin [Adult Low Dose Aspirin EC] 81 mg PO DAILY 01/13/16 Multivitamins,Therapeutic [Multivitamin] 1 tab PO DAILY 01/13/16 Loratadine [Claritin] 10 mg PO DAILY PRN 05/10/16 sitagliptin 100 mg tablet 100 mg PO DAILY tab 10/16/17 oxybutynin chloride ER 5 mg tablet,extended release 24 hr 5 mg PO DAILY simvastatin 40 mg tablet 40 mg PO QHS 10/18/17 Citalopram [Celexa] 20 mg PO DAILY 11/03/17 Esomeprazole Mag Trihydrate [Nexium] 22.3 mg PO QHS 11/03/17 Clopidogrel Bisulfate [Plavix] 75 mg PO DAILY #30 tab 11/05/17 Isosorbide DN [Isordil] 10 mg PO TID #90 tab 11/05/17 Metoprolol Tartrate [Lopressor (beta ian)] 100 mg PO BID #60 tab 11/05/17 Nitroglycerin [Nitrostat] 0.4 mg SUBLINGUAL Q5M PRN #5 tab 11/05/17 The following prescriptions were given: Clopidogrel Bisulfate [Plavix] 75 mg PO DAILY #30 tab Nitroglycerin [Nitrostat] 0.4 mg SUBLINGUAL Q5M PRN #5 tab PRN Reason: Chest Pain Metoprolol Tartrate [Lopressor (beta ian)] 100 mg PO BID #60 tab Isosorbide DN [Isordil] 10 mg PO TID #90 tab Orders to be completed after discharge: Basic Metabolic Profile (BMP) Time Frame: 1 Week, Location: Laboratory Primary Care Physician: Maikel Bay DO [Primary Care Provider] - Please follow up with your Primary Care Physician in: within 2 weeks Please Follow Up With: Tino Batista MD When: within 2 weeks Proposed Discharge Date: 11/05/17
== END 2017-11-05 14:07 | disposition home or self-care (01) | DRG 303 ==
LOC: ED 10:24 → PCU 11:40
PROVIDERS: Admitting Provider Internal Medicine; Emergency Provider Emergency Medicine; Family Provider Family Medicine; PCP Family Medicine; Visit Provider Internal Medicine
DX: I25.110 Atherosclerotic heart disease of native coronary artery with unstable angina pectoris (principal); E11.9 Type 2 diabetes mellitus without complications; I10 Essential (primary) hypertension; Z87.891 Personal history of nicotine dependence; Z95.1 Presence of aortocoronary bypass graft; E66.9 Obesity, unspecified; E78.5 Hyperlipidemia, unspecified; Z68.30 Body mass index [BMI] 30.0-30.9, adult; Z79.84 Long term (current) use of oral hypoglycemic drugs; Z79.82 Long term (current) use of aspirin; Z79.899 Other long term (current) drug therapy
CPT/HCPCS: 36415; 71045; 78452; 80048; 80061; 80076; 82962; 83036; 83735; 84484; 85025; 85610; 85730; 93005; 93017; 93306; 97802; 99283; A9500; Q9957; A4216; C8929

== ENCOUNTER → 2018-01-23 07:37 | Outpatient (CLI) | payer OTHER, MEDICARE, SELFPAY ==
--- NOTE | 2018-01-23 07:17 | BI_ITS ---
MAMMOGRAPHY - BILATERAL SCREENING REASON FOR EXAM: Female, 67 years old. Routine annual screening examination. PERTINENT HISTORY: Non-contributory. TECHNIQUE: Digital bilateral breast mary (3D mammographic acquisition) in the CC and MLO projections. 2-D mediolateral oblique (MLO) and craniocaudad (CC) views of both breasts were obtained. CAD: Full Field Digital Mammography with Computer Added Detection was performed. COMPARISON: Comparison is made with prior study dated October 26, 2016 and October 20, 2015. FINDINGS: Breast Composition: The breasts are heterogeneously dense, which may obscure small masses. There are no dominant masses or suspicious calcifications. Stable bilateral benign-appearing axillary lymph nodes. No other significant abnormalities are identified. There has been no significant change since the prior study. BI/SCREENING MAMM (CAD), BILAT IMPRESSION: Stable bilateral screening mammogram. Yearly follow-up mammogram recommended. (A) ASSESSMENT CATEGORY: BIRADS Category 2: Benign. A letter regarding these results will be sent to the patient by the facility within 30 days. Approximately 10% of breast cancers are not detected by mammography. A normal mammogram should not delay biopsy of a clinically suspicious abnormality. [id number] Electronically Signed: Kaiser Medrano MD at 8:54 EDT Tel [phone], Service support ,
== END ==
PROVIDERS: Family Provider Family Medicine; PCP Family Medicine; Visit Provider Family Medicine
DX: Z12.31 Encounter for screening mammogram for malignant neoplasm of breast (principal)
CPT/HCPCS: 77063; 77067

== ENCOUNTER 2018-03-20 10:51 | Emergency (ER) | payer MEDICARE, SELFPAY ==
[2018-03-20 10:52] VITALS: BP 158/72; PULSE 69; RESP 16; TEMP 36.6; O2SAT 97; BMI 32.1
--- NOTE | 2018-03-20 11:03 | ED.VISSUMM ---
- ER Visit Summary Date of Service: 03/20/18 Chief Complaint: Dysuria History of Present Illness: The patient is a [address] Bay and Dr. Batista. She reports she has dysuria and frequency that began yesterday. She reports that she has a suprapubic bloating/pressure that is 8 out of 10 at worst and 7 out of 10 currently. Is worsened by nothing relieved by nothing. She denies any vaginal bleeding or discharge. She denies any fever or chills. She has had nausea without vomiting. She reports she has had similar symptoms in the past with cystitis. Physical Examination: Vitals: Stable. Afebrile. General: Well-nourished and well-developed. Head: Normocephalic atraumatic. Neck: Supple, no lymphadenopathy. No JVD. Nontender. Cardiovascular: Regular rate and rhythm. No murmurs. Respiratory: No respiratory distress. Clear to auscultation bilaterally. Abdominal: Soft, mild suprapubic tenderness to palpation, nondistended, normal bowel sounds. No guarding, rebound, or peritoneal signs. Back: Nontender. Extremities: Nontender, no edema. Skin: Normal color, no rash. Neurologic: Alert and oriented ?3. Cranial nerves II through XII are intact. Normal strength and sensation. Psych: Normal affect. Test Results: UA has greater than 100 whites, 5-10 reds 1+ bacteria, leukocytes, and nitrates. Emergency Department Course and Treatment: Patient refused pain medications. She was given Zofran and Azo p.o. She is resting comfortably. When her urine returned she was treated with Keflex p.o. Treatment Plan: Patient will be discharged on Keflex, Zofran, and Pyridium. Instructed follow-up her primary care physician in 3-5 days if not improving. Return to the emergency department for any worsening symptoms. Disposition: To home in improved and stable condition. Impression: 1. UTI. This note was generated with [employer] dictation software. It may contain incorrect words, spelling, and punctuation that were not noted in review of the chart prior to signing ED Disposition - Plan for ED Patient: Chief Complaint: Complaint Instructions: ED UTI Cystitis Female Prescriptions: Ondansetron [Zofran Odt] 4 mg PO Q8H PRN PRN #10 tablet PRN Reason: Nausea Cephalexin [Keflex] 500 mg PO Q6 #28 capsule Phenazopyridine HCl [Pyridium] 200 mg PO BID PRN PRN #10 tablet PRN Reason: Pain Referrals: Maikel Bay DO [Primary Care Provider] - 3-5 Days if not improving
[2018-03-20 11:16] LABS: Mucous, Urine 0 SEEN /hpf (<or=2+)
[2018-03-20] MEDS: Ondansetron ODT 4 MG Tablet PO (11:16)
[2018-03-20] MEDS: Phenazopyridine 95 MG Tablet 190 MG PO (11:16)
[2018-03-20 11:17] VITALS: BP 130/100; PULSE 75; RESP 14; O2SAT 97
[2018-03-20 11:18] LABS: Color, Urine Yellow (Yellow); Glucose, Dipstick Normal (Normal); Ketone-Dipstick Negative (Negative); Leukocyte Esterase-Dipstick 500 /ul (Negative); Nitrite-Dipstick Positive (Negative); Occult Blood-Urine 150 /ul (Negative); Protein-Dipstick 100 mg/dl (Negative); Specific Gravity, Urine 1.005 (1.002-1.030); Urine Bilirubin Dipstick Negative (Negative); Urine Clarity Sl. Cloudy (Clear); Urine Urobilinogen Normal (Normal)
[2018-03-20 11:31] LABS: Red Blood Cells-Urine 5-10 SEEN /hpf (0-5); White Blood Cells >100 SEEN /hpf (0-5)
[2018-03-20 11:32] LABS: Bacteria 1+ /hpf (None Seen); Squamous Epithelial Cells - UA 0-5 SEEN /hpf (5-10)
[2018-03-20 12:03] VITALS: BP 128/95; PULSE 70; RESP 14; O2SAT 99
[2018-03-20] MEDS: Cephalexin 250 MG Capsule 500 MG PO (12:11)
== END 2018-03-20 12:12 | disposition home or self-care (01) ==
PROVIDERS: Emergency Provider Emergency Medicine; Family Provider Family Medicine; PCP Family Medicine
DX: N39.0 Urinary tract infection, site not specified (principal); E11.9 Type 2 diabetes mellitus without complications; I25.10 Atherosclerotic heart disease of native coronary artery without angina pectoris; I10 Essential (primary) hypertension; Z86.73 Personal history of transient ischemic attack (TIA), and cerebral infarction without residual deficits; Z79.82 Long term (current) use of aspirin; Z79.84 Long term (current) use of oral hypoglycemic drugs; Z79.899 Other long term (current) drug therapy
CPT/HCPCS: 81001; 99283